=== PATIENT | female | born 1990 | race African-American/Black ===

== ENCOUNTER 2017-02-18 17:57 | Emergency (ER) | payer SELFPAY ==
[~2017-02-18] VITALS: Ht 162.6 cm; Wt 65.0 kg
[2017-02-18 17:58] VITALS: BP 110/68
== END 2017-02-18 18:13 | disposition left against medical advice (07) ==
LOC: ER 18:10
DX: R10.9 Unspecified abdominal pain (principal); Z53.21 Procedure and treatment not carried out due to patient leaving prior to being seen by health care provider